=== PATIENT | female | born 1960 | race Caucasian/White ===

== ENCOUNTER 2016-06-25 17:06 | Emergency (ER) | payer MEDICARE, MEDICAID ==
[~2016-06-25] VITALS: Ht 156.2 cm; Wt 100.0 kg
[~2016-06-25 17:06] MED LIST: AMOX875T2 PO; [UNRECOGNIZED DRUG - CODE]
--- OUTSIDE RECORDS SUMMARY | 2016-06-25 17:09 | XMS REPORT ---
Author Author Debby Jaramillo Organization [employer] Address Unknown Phone Unavailable Care Team Providers Care Tech Brazer Tester Name Role Phone Debby Jaramillo CP Unavailable Allergies No Known Allergies Problems Problem Type Condition ICD-9 Code Onset Dates Condition Status Assessment [place]noy ulcerative (chronic) colitis 556.6 Active Assessment Benign neoplasm of colon 211.3 Active Problem Other complicated headache syndrome 339.44 Active Problem Vision impairment, both eyes, impairment level not further specified 369.20 Active Problem Esophageal reflux 530.81 Active Problem Chronic interstitial cystitis 595.1 Active Problem Asthma, unspecified, unspecified status 493.90 Active Problem COPD 496 Active Problem Tobacco use disorder 305.1 Active Medications No Known Medications Results No Known Results Summary Purpose eClinicalWorks Submission
--- OUTSIDE RECORDS SUMMARY | 2016-06-25 17:09 | XMS REPORT ---
Author Author Marek Do Organization [employer] Address Unknown Phone Unavailable Care Team Providers Care Rural Health Consultant Name Role Phone Marek Do CP Unavailable Allergies, Adverse Reactions, Alerts Substance Reaction Event Type Ibuprofen stomach upset Drug Allergy Darvocet-N 50 rash Drug Allergy Codeine Sulfate stomach upset Drug Allergy Claritin rash Drug Allergy Ceftin rash Drug Allergy Problems Problem Type Condition ICD-9 Code Onset Dates Condition Status Assessment Diarrhea 787.91 Active Assessment Colitis, enteritis, and gastroenteritis of presumed infectious origin 009.1 Active Assessment Abdominal pain, generalized 789.07 Active Assessment Nausea with vomiting 787.01 Active Problem Other complicated headache syndrome 339.44 Active Problem Vision impairment, both eyes, impairment level not further specified 369.20 Active Problem Esophageal reflux 530.81 Active Problem Chronic interstitial cystitis 595.1 Active Problem Asthma, unspecified, unspecified status 493.90 Active Problem COPD 496 Active Problem Tobacco use disorder 305.1 Active Medications Medication Code System Code Instructions Start Date End Date Status Dosage Mattie Wasserman [facility] [address]-22 100 MG Orally Three times a day September 04, 2014 Oct 02, 2014 1 capsule as needed Albuterol Sulfate HFA [facility] [address]-35 108 (90 Base) MCG/ACT Inhalation every 4 hrs Jan 14, 2014 2 puffs as needed Ipratropium [place] [facility] [address]-45 0.02 % Inhalation Three times a day May 01, 2014 1 vial mixed with albuterol Albuterol Sulfate [facility] [address]-84 (2.5 MG/3ML) 0.083% Inhalation Three times a day May 01, 2014 3 ml Protonix [facility] [address]-39 40 MG Orally Once a day Sep 22, 2014 1 tablet Procedures Procedure Coding System Code Date IH CMP CPT-4 87697 Sep 22, 2014 OFFICE VISIT, EST-MOD. COMPLEXITY (25 MIN) CPT-4 43603 Sep 22, 2014 Vital Signs Date/Time: Sep 22, 2014 Height 61.5 in Weight 257.4 lbs Temperature 98.1 F Blood Pressure Diastolic 86 mm Hg Blood Pressure Systolic 122 mm Hg Cardiac Monitoring Heart Rate 73 /min BMI 47.84 Index Oximetry 97 % Respiratory Rate 16 /min Results No Known Results Summary Purpose eClinicalWorks Submission
--- OUTSIDE RECORDS SUMMARY | 2016-06-25 17:09 | XMS REPORT ---
Author Author Debby Jaramillo [facility] eClinicalWorks Address Unknown Phone Unavailable Care Team Providers Care Bee Tender Name Role Phone Debby Jaramillo CP Unavailable Allergies No Known Allergies Problems Problem Type Condition Code Onset Dates Condition Status Problem Interstitial cystitis (chronic) without hematuria N30.10 Active Problem Nicotine dependence, unspecified, uncomplicated F17.200 Active Problem Unspecified asthma, uncomplicated J45.909 Active Problem Low vision, both eyes H54.2 Active Problem Gastro-esophageal reflux disease without esophagitis K21.9 Active Problem Chronic obstructive pulmonary disease, unspecified J44.9 Active Problem Other complicated headache syndrome G44.59 Active Medications No Known Medications Results No Known Results Summary Purpose eClinicalWorks Submission
--- OUTSIDE RECORDS SUMMARY | 2016-06-25 17:09 | XMS REPORT ---
Author Ace Bull [facility] eClinicalWorks Address Unknown Phone Unavailable Care Team Providers Care Lead Printer Name Role Phone Ace Carlos CP Unavailable Allergies No Known Allergies Problems No Known Problems Medications No Known Medications Results No Known Results Summary Purpose eClinicalWorks Submission
--- OUTSIDE RECORDS SUMMARY | 2016-06-25 17:09 | XMS REPORT ---
Author Author Marek Do Organization [employer] Address Unknown Phone Unavailable Care Team Providers Care Cia Agent Name Role Phone Marek Do CP Unavailable Allergies No Known Allergies Problems Problem Type Condition ICD-9 Code Onset Dates Condition Status Assessment Colitis, enteritis, and gastroenteritis of presumed infectious origin 009.1 Active Problem Other complicated headache syndrome 339.44 Active Problem Vision impairment, both eyes, impairment level not further specified 369.20 Active Problem Esophageal reflux 530.81 Active Problem Chronic interstitial cystitis 595.1 Active Problem Asthma, unspecified, unspecified status 493.90 Active Problem COPD 496 Active Problem Tobacco use disorder 305.1 Active Medications Medication Code System Code Instructions Start Date End Date Status Dosage Ipratropium [place] [facility] [address]-00 0.02 % Inhalation Three times a day May 01, 2014 1 vial mixed with albuterol Tessalon Perles [facility] [address]-97 100 MG Orally Three times a day September 04, 2014 Oct 02, 2014 1 capsule as needed Albuterol Sulfate HFA [facility] [address]-94 108 (90 Base) MCG/ACT Inhalation every 4 hrs Jan 14, 2014 2 puffs as needed Protonix [facility] [address]-86 40 MG Orally Once a day Sep 22, 2014 1 tablet Albuterol Sulfate [facility] [address]-15 (2.5 MG/3ML) 0.083% Inhalation Three times a day May 01, 2014 3 ml Procedures Procedure Coding System Code Date COMPLETE CBC W/AUTO DIFF WBC CPT-4 15778 Sep 22, 2014 Results No Known Results Summary Purpose eClinicalWorks Submission
--- OUTSIDE RECORDS SUMMARY | 2016-06-25 17:09 | XMS REPORT ---
Author Aris Torres Organization [employer] Address Unknown Phone Unavailable Care Team Providers Care Vacuum Frame Operator Name Role Phone Aris Jaramillo CP Unavailable Allergies, Adverse Reactions, Alerts Substance Reaction Event Type Darvocet A500 Info Not Available Drug Allergy Codeine Phosphate Soluble nausea and vomiting Drug Allergy Claritin rash Drug Allergy Ceftin rash Drug Allergy Problems Problem Type Condition Code Onset Dates Condition Status Assessment Dyspepsia 536.8 Active Assessment Early satiety 780.94 Active Assessment Abdominal pain 789.00 Active Assessment Colitis 558.9 Active Assessment Diarrhea 787.91 Active Medications Medication Code System Code Instructions Start Date End Date Status Dosage Albuterol NDC 0 as needed not defined Nebulizer NDC 70677-62835 1 inhalation prn as directed Procedures Procedure Coding System Code Date Office Visit, New Pt., Level 4 CPT-4 58768 Oct 23, 2014 Vital Signs Date/Time: Oct 23, 2014 Blood Pressure Systolic 118 mm Hg Weight 253.2 lbs Height 61.5 in BMI 47.06 Index Respiratory Rate 18 /min Cardiac Monitoring Heart Rate 78 /min Blood Pressure Diastolic 74 mm Hg Results No Known Results Summary Purpose eClinicalWorks Submission
--- OUTSIDE RECORDS SUMMARY | 2016-06-25 17:09 | XMS REPORT ---
Author Author Marek Do Organization [employer] Address Unknown Phone Unavailable Care Team Providers Care Pocket Grinder Operator Name Role Phone Marek Do CP Unavailable Allergies No Known Allergies Problems Problem Type Condition ICD-9 Code Onset Dates Condition Status Assessment Acute bronchitis 466.0 Active Problem Other complicated headache syndrome 339.44 Active Problem Vision impairment, both eyes, impairment level not further specified 369.20 Active Problem Esophageal reflux 530.81 Active Problem Chronic interstitial cystitis 595.1 Active Problem Asthma, unspecified, unspecified status 493.90 Active Problem COPD 496 Active Problem Tobacco use disorder 305.1 Active Medications Medication Code System Code Instructions Start Date End Date Status Dosage Ipratropium [place] [facility] [address]-94 0.02 % Inhalation Three times a day May 01, 2014 1 vial mixed with albuterol Albuterol Sulfate [facility] [address]-25 (2.5 MG/3ML) 0.083% Inhalation Three times a day May 01, [address] [facility] [address]-08 875 MG Orally Twice a day September 04, 2014 September 14, 2014 1 tablet Albuterol Sulfate HFA [facility] [address]-06 108 (90 Base) MCG/ACT Inhalation every 4 hrs Jan 14, 2014 2 puffs as needed Mattie Wasserman [facility] [address]-96 100 MG Orally Three times a day September 04, 2014 Oct 02, 2014 1 capsule as needed Procedures Procedure Coding System Code Date SED RATE CPT-4 95850 September 04, 2014 COMPLETE CBC W/AUTO DIFF WBC CPT-4 62456 September 04, 2014 Results No Known Results Summary Purpose eClinicalWorks Submission
--- OUTSIDE RECORDS SUMMARY | 2016-06-25 17:10 | XMS REPORT ---
Author Author Debby Jaramillo [facility] eClinicalWorks Address Unknown Phone Unavailable Care Team Providers Care Armor Officer Name Role Phone Debby Jaramillo CP Unavailable [...]
--- OUTSIDE RECORDS SUMMARY | 2016-06-25 17:10 | XMS REPORT ---
Author Author Marek Do Organization [employer] Address Unknown Phone Unavailable Care Team Providers Care Staff Command And Control Officer Name Role Phone Marek Do CP Unavailable Allergies, Adverse Reactions, Alerts Substance Reaction Event Type Ibuprofen stomach upset Drug Allergy Darvocet-N 50 rash Drug Allergy Codeine Sulfate stomach upset Drug Allergy Claritin rash Drug Allergy Ceftin rash Drug Allergy Problems Problem Type Condition ICD-9 Code Onset Dates Condition Status Assessment Diarrhea 787.91 Active Assessment Dehydration 276.51 Active Problem Other complicated headache syndrome 339.44 Active Problem Vision impairment, both eyes, impairment level not further specified 369.20 Active Problem Esophageal reflux 530.81 Active Problem Chronic interstitial cystitis 595.1 Active Problem Asthma, unspecified, unspecified status 493.90 Active Problem COPD 496 Active Problem Tobacco use disorder 305.1 Active Medications Medication Code System Code Instructions Start Date End Date Status Dosage Albuterol Sulfate [facility] [address]-96 (2.5 MG/3ML) 0.083% Inhalation Three times a day May 01, 2014 3 ml Tessalon Perles [facility] [address]-98 100 MG Orally Three times a day September 04, 2014 Oct 02, 2014 1 capsule as needed Ipratropium [place] [facility] [address]-22 0.02 % Inhalation Three times a day May 01, 2014 1 vial mixed with albuterol Amoxicillin [facility] [address]-75 875 MG Orally Twice a day September 04, 2014 September 14, 2014 1 tablet Albuterol Sulfate HFA [facility] [address]-21 108 (90 Base) MCG/ACT Inhalation every 4 hrs Jan 14, 2014 2 puffs as needed Vital Signs Date/Time: September 10, 2014 Height 61.5 in Weight 256.12 lbs Temperature 98.0 F Blood Pressure Diastolic 88 mm Hg Blood Pressure Systolic 124 mm Hg Cardiac Monitoring Heart Rate 66 /min BMI 47.60 Index Oximetry 98 % Respiratory Rate 16 /min Results No Known Results Summary Purpose eClinicalWorks Submission
--- OUTSIDE RECORDS SUMMARY | 2016-06-25 17:10 | XMS REPORT ---
Author Author Debby Jaramillo [facility] eClinicalWorks Address Unknown Phone Unavailable Care Team Providers Care Manager Global Name Role Phone Debby Jaramillo CP Unavailable Allergies No Known Allergies Problems Problem Type Condition ICD-9 Code Onset Dates Condition Status Problem Other complicated headache syndrome 339.44 Active [...]
--- OUTSIDE RECORDS SUMMARY | 2016-06-25 17:10 | XMS REPORT ---
Author Author Debby Jaramillo [facility] eClinicalWorks Address Unknown Phone Unavailable Care Team Providers Care Air And Water Tester Name Role Phone Debby Jaramillo CP Unavailable Allergies, Adverse Reactions, Alerts Substance Reaction Event Type Ibuprofen stomach upset Drug Allergy Darvocet-N 50 rash Drug Allergy Codeine Sulfate stomach upset Drug Allergy Claritin rash Drug Allergy Ceftin rash Drug Allergy Problems Problem Type Condition Code Onset Dates Condition Status Assessment Allergic contact dermatitis due to cosmetics L23.2 Active Problem Interstitial cystitis (chronic) without hematuria N30.10 Active Problem Nicotine dependence, unspecified, uncomplicated F17.200 Active Problem Unspecified asthma, uncomplicated J45.909 Active Problem Low vision, both eyes H54.2 Active Problem Gastro-esophageal reflux disease without esophagitis K21.9 Active Problem Chronic obstructive pulmonary disease, unspecified J44.9 Active Problem Other complicated headache syndrome G44.59 Active Medications Medication Code System Code Instructions Start Date End Date Status Dosage Protonix [facility] [address]-21 40 MG Orally Once a day Sep 22, 2014 1 tablet Albuterol Sulfate [facility] [address]-84 (2.5 MG/3ML) 0.083% Inhalation Three times a day May 01, 2014 3 ml Triamcinolone Acetonide [facility] [address]-21 0.1 % Externally Twice a day for 7 days then as needed Nov 09, 2015 1 application to affected area Ipratropium [place] [facility] [address]-77 0.02 % Inhalation Three times a day May 01, 2014 1 vial mixed with albuterol Albuterol Sulfate HFA [facility] [address]-96 108 (90 Base) MCG/ACT Inhalation every 4 hrs Jan 14, 2014 2 puffs as needed PredniSONE [facility] [address]-07 20 MG Orally Once a day Nov 09, 2015Oct 2 tablets with food or milk Procedures Procedure Coding System Code Date OFFICE VISIT, EST-LOW COMPLEXITY (15 MIN.) CPT-4 49978 Nov 09, 2015 Vital Signs Date/Time: Nov 09, 2015 Temperature 98.4 F Height 61.5 in Weight 225.75 lbs Blood Pressure Diastolic 80 mm Hg Blood Pressure Systolic 130 mm Hg Cardiac Monitoring Heart Rate 84 /min BMI 41.96 Index Oximetry 98 % Respiratory Rate 16 /min Results No Known Results Summary Purpose eClinicalWorks Submission
--- OUTSIDE RECORDS SUMMARY | 2016-06-25 17:10 | XMS REPORT | Referral Summary ---
Author Organization Unknown Address Unknown Phone Unavailable Care Team Providers Care Drop Board Worker Name Role Phone Debby Jaramillo Primary Care Physician [phone] Encounter VC Date(s): 04/01/14 - 04/01/14 [address] [facility] [place], Urology [address] [place] [address] JIMMY [place] [address] Discharge Diagnosis: Chronic trigonitis Discharge Disposition: Home or Self Care Attending Physician: Tushar Lyn JR, MD Admitting Physician: Tushar Lyn JR, MD Referring Physician: Debby Jaramillo FITTER MECHANIC Vital Signs Most recent to 1 oldest [Reference Range]: Peripheral Pulse 68 bpm Rate [60-100 bpm] (04/01/14 3:56 PM) Blood Pressure 112/78 mmHg [90-140/60-90 mmHg] (04/01/14 3:56 PM) Most recent to 1 oldest [Reference Range]: SpO2 96 % (04/01/14 3:56 PM) Problem List Condition Effective Dates Status Health Status Informant Morbid Active patient obesity(Confirmed) Allergies, Adverse Reactions, Alerts Substance Reaction Severity Status Ceftin Active Claritin Active codeine Active Darvocet A500 Active ibuprofen Active Medications albuterol CFC free 90 mcg/inh inhalation aerosol puffs, Inhalation, QID, 0 Refill(s) Start Date: 01/30/14 Status: Ordered naproxen Oral, 0 Refill(s) Start Date: 01/30/14 Status: Ordered Results No data available for this section Immunizations No data available for this section Procedures Procedure Date Related Diagnosis Body Site Cystoscopy Dilation of urethra Social History Social History Type Response Smoking Status Current some day smoker Assessment and Plan Extracted from: Title: Ambulatory Patient Education Author: Tushar Lyn JR, MD Date : 04/01/14 Follow Up With: Where: When: Debby Jaramillo [address] [place] [address] Business (1) Within 3 to 5 days Comments: Follow Up With: Where: When: Tushar Lyn [address] [place] [address] Drive; Via [facility] JIMMY [place] [phone] Business (1) In 6 months 09/29/2014 Comments:
--- OUTSIDE RECORDS SUMMARY | 2016-06-25 17:10 | XMS REPORT ---
Author Author Marek Do Organization eClinicalWorks Address Unknown Phone Unavailable Care Team Providers Care Housing Relocation Name Role Phone Marek Do CP Unavailable Allergies No Known Allergies Problems Problem Type Condition ICD-9 Code Onset Dates Condition Status Assessment Diarrhea 787.91 Active Problem Other complicated headache syndrome 339.44 [...]
--- OUTSIDE RECORDS SUMMARY | 2016-06-25 17:10 | XMS REPORT | Continuity of Care Document ---
Author Author [facility] Organization [facility] Address Unknown Phone Unavailable Support Name Relationship Address Phone RICHARDMAYITO ARREDONDO Willow COLEMAN Caregiver [address] [place] [address] DOMENICO BOJORQUEZ MD Caregiver [address] [place] [address] [place] [address] [phone] JAIME ALONSO Next Of Kin [address] [place] [address] Insurance Providers Payer Name Policy Number Subscriber Name Relationship Alison [employer] [id number] Lelo Doll 18 Self Advance Directives Directive Response Recorded Date/Time Dr Mckenzie Resuscitation Status Full Code, unverified 02/14/14 10:16am Resuscitation Documents on File No 02/11/14 3:57pm Problems Medical Problems Problem Onset Date Status FX RT 5TH METATARSAL Unknown Active Corneal abrasion Unknown Active Medications Medication Dose Route Sig Days/Qty Instructions Order Date Discontinued Date Status Albuterol 17 Gm IH NEEDED 12/13/07 Active Naproxen 1 Tab PO DAILY 02/11/14 Active Social History Social History Problem Response Recorded Date/Time Chewing Tobacco Status No 02/11/2014 3:53pm Hx Substance Use No 02/11/2014 3:53pm Hx Alcohol Use No 02/11/2014 3:53pm Has the pt used tobacco in the last 12 months Yes 02/17/2014 9:15am Tobacco Usage smoke 01/14/2014 11:55pm Query Response Start Date Stop Date Smoking Status Current every day smoker Hospital Discharge Instructions No hospital discharge instructions. Plan of Care No plan of care. Functional Status Query Response Date Recorded Physical Hygiene Self January 14, 2014 10:45pm Physical Hygiene Self January 14, 2014 10:45pm Allergies, Adverse Reactions, Alerts Allergen Type Severity Reaction Status Last Updated meperidine HCl Adverse Reaction Unknown NAUSEA Active 03/24/13 Morphine Adverse Reaction Unknown NAUSEA Active 03/24/13 Codeine Adverse Reaction Intermediate NAUSEA Active 03/24/13 Propoxyphene Allergy Severe NAUSEA AND RASH Active 01/14/14 Acetaminophen Allergy Severe NAUSEA AND RASH Active 01/14/14 Ibuprofen Adverse Reaction Intermediate PER DR. BOJORQUEZ REQUEST Active 04/05 Cefuroxime Allergy Severe RASH Active 01/14/14 Loratadine Allergy Severe RASH Active 01/14/14 Immunizations Name Given Type Hx Influenza Vaccination No Historical Hx Pneumococcal Vaccination No Historical Hx Tetanus, Diptheria, Pertussis N/A SKIN INTACT Historical Hx Influenza Vaccination No Historical Hx Tetanus, Diptheria, Pertussis N/A SKIN INTACT Historical Vital Signs Acute Vital Signs Vital Response Date/Time Temperature (Fahrenheit) 97.2 deg F (96.8 - 99.1) Temperature (Calculated Celsius) 36.04182 degrees C (36.0 - 37.3) Temperature Source Temporal Pulse Rate (adult) 64 bpm (60 - 100) Respiratory Rate 16 breaths/min (10 - 20) O2 Sat by Pulse Oximetry 98 % (90 - 100) Oxygen Delivery Method Room Air Blood Pressure 124/62 mm Hg Blood Pressure Source Automatic Cuff Height 5 ft 0 in Weight 253 lb Body Mass Index 49.0 kg/m^2 Results Test Source Date Result Interp. Ref. Range Comments Urine Bacteria October 03, 2010 8:49pm 2+ H - Has specimen been collected/obtained? Y Urine Bilirubin October 03, 2010 8:49pm Negative - Has specimen been collected/obtained? Y Urine Blood October 03, 2010 8:49pm 3+ H - Has specimen been collected/ obtained? Y Urine Collection Type October 03, 2010 8:49pm Voided - Has specimen been collected/obtained? Y Urine Color October 03, 2010 8:49pm Yellow - Has specimen been collected/obtained? Y Urine Culture Indicated October 03, 2010 8:49pm Cult not set up - Has specimen been collected/obtained? Y Urine Glucose (UA) October 03, 2010 8:49pm Negative - Has specimen been collected/obtained? Y Urine Ketones October 03, 2010 8:49pm Negative - Has specimen been collected/obtained? Y Urine Leukocyte Esterase October 03, 2010 8:49pm 1+ H - Has specimen been collected/obtained? Y Urine Nitrite October 03, 2010 8:49pm Positive H - Has specimen been collected/obtained? Y Urine Protein October 03, 2010 8:49pm Negative - Has specimen been collected/obtained? Y Urine RBC October 03, 2010 8:49pm 1-3 /HPF - Has specimen been collected/obtained? Y Urine Specific [place] October 03, 2010 8:49pm 1.030 H - Has specimen been collected/obtained? Y Urine Squamous Epithelial Cells October 03, 2010 8:49pm Many - Has specimen been collected/obtained? Y Urine Turbidity October 03, 2010 8:49pm Slt cldy - Has specimen been collected/obtained? Y Urine Urobilinogen October 03, 2010 8:49pm Normal EU/DL - Has specimen been collected/obtained? Y Urine WBC October 03, 2010 8:49pm 3-5 /HPF - Has specimen been collected/obtained? Y Urine pH October 03, 2010 8:49pm 5.0 - Has specimen been collected/ obtained? Y Urine Culture Urine, Clean Catch Voided October 03, 2010 8:45pm Kleb Pneumoniae Ssp Pneumoniae Procedures Procedure Status Date Provider(s) EMERGENCY DEPT VISIT completed 01/14/14 Encounters Encounter Location Date/Time Departed Emergency Room [facility] 01/14/14 9:37pm
--- OUTSIDE RECORDS SUMMARY | 2016-06-25 17:10 | XMS REPORT ---
Author Author Debby Jaramillo [facility] eClinicalWorks Address Unknown Phone Unavailable Care Team Providers Care Lead Laying And Gluing Machine Operator Name Role Phone Debby Jaramillo CP Unavailable [...]
--- OUTSIDE RECORDS SUMMARY | 2016-06-25 17:10 | XMS REPORT ---
Author Author Debby Jaramillo [facility] eClinicalWorks Address Unknown Phone Unavailable Care Team Providers Care Manager Track Name Role Phone Debby Jaramillo Unavailable Allergies, Adverse Reactions, Alerts Substance Reaction Event Type Ibuprofen stomach upset Drug Allergy Darvocet-N 50 rash Drug Allergy Codeine Sulfate stomach upset Drug Allergy Claritin rash Drug Allergy Ceftin rash Drug Allergy Problems Problem Type Condition Code Onset Dates Condition Status Problem Tobacco use disorder 305.1 Active Problem Chronic interstitial cystitis 595.1 Active Problem COPD 496 Active Problem Asthma, unspecified, unspecified status 493.90 Active Assessment COPD 496 Active Medications Medication Code System Code Instructions Start Date End Date Status Dosage Spiriva HandiHaler [facility] [address]-64 18 MCG Inhalation Once a day AprilNov 03, 2014 1 capsule PredniSONE [facility] [address]-13 20 MG Orally Once a day May 01, 2014 May 06, 2014 3 tablets with food or milk Albuterol Sulfate HFA [facility] [address]-56 108 (90 Base) MCG/ACT Inhalation every 4 hrs Jan 14, 2014 2 puffs as needed Albuterol Sulfate [facility] [address]-54 (2.5 MG/3ML) 0.083% Inhalation Three times a day May 01, 2014 3 ml Ipratropium [place] [facility] [address]-18 0.02 % Inhalation Three times a day May 01, 2014 1 vial mixed with albuterol Mucinex Fast-Max DM Max [facility] [address]-11 20-400 MG/20ML Orally every 4 hrs 5 ml as needed Procedures Procedure Coding System Code Date OFFICE VISIT, EST-LOW COMPLEXITY (15 MIN.) CPT-4 21602 May 07, 2014 Vital Signs Date/Time: May 07, 2014 Height 61.5 in Weight 263.4 lbs Temperature 98.3 F Blood Pressure Diastolic 80 mm Hg Blood Pressure Systolic 122 mm Hg Cardiac Monitoring Heart Rate 60 /min BMI 48.96 Index Oximetry 97 % Respiratory Rate 18 /min Results No Known Results Summary Purpose eClinicalWorks Submission
--- OUTSIDE RECORDS SUMMARY | 2016-06-25 17:10 | XMS REPORT ---
Author Author Debby Jaramillo [facility] eClinicalWorks Address Unknown Phone Unavailable Care Team Providers Care Child Adolescent Psychiatrist Name Role Phone Debby Jaramillo Unavailable Allergies No Known Allergies Problems Problem Type Condition ICD-9 Code Onset Dates Condition Status Problem Chronic interstitial cystitis 595.1 Active Problem Asthma, unspecified, unspecified status 493.90 Active Problem Tobacco use disorder 305.1 Active Assessment Asthma, acute exacerbation 493.92 Active Medications Medication Code System Code Instructions Start Date End Date Status Dosage Albuterol Sulfate [facility] [address]-22 108 (90 Base) MCG/ACT Inhalation every 4 hrs Jan 14, 2014 2 puffs as needed Results No Known Results Summary Purpose eClinicalWorks Submission
--- OUTSIDE RECORDS SUMMARY | 2016-06-25 17:10 | XMS REPORT ---
Author Debby Ojeda [facility] eClinicalWorks Address Unknown Phone Unavailable Care Team Providers Care Marine Surveyor Name Role Phone Debby Jaramillo Unavailable Allergies, Adverse Reactions, Alerts Substance Reaction Event Type Ibuprofen stomach upset Drug Allergy Darvocet-N 50 rash Drug Allergy Codeine Sulfate stomach upset Drug Allergy Claritin rash Drug Allergy Ceftin rash Drug Allergy Problems Problem Type Condition ICD-9 Code Onset Dates Condition Status Assessment Acute upper respiratory infections of unspecified site 465.9 Active Problem Other complicated headache syndrome 339.44 Active Problem Vision impairment, both eyes, impairment level not further specified 369.20 Active Problem Esophageal reflux 530.81 Active Problem Chronic interstitial cystitis 595.1 Active Problem Asthma, unspecified, unspecified status 493.90 Active Problem COPD 496 Active Problem Tobacco use disorder 305.1 Active Medications Medication Code System Code Instructions Start Date End Date Status Dosage Spiriva HandiHaler [facility] [address]-74 18 MCG Inhalation Once a day AprilNov 03, 2014 1 capsule Ipratropium [place] [facility] [address]-67 0.02 % Inhalation Three times a day May 01, 2014 1 vial mixed with albuterol Albuterol Sulfate [facility] [address]-42 (2.5 MG/3ML) 0.083% Inhalation Three times a day May 01, 2014 3 ml Tussionex Pennkinetic ER [facility] [address]-89 10-8 MG/5ML Orally at HS AugustSeptember 03, 2014 5 ml as needed Albuterol Sulfate HFA [facility] [address]-30 108 (90 Base) MCG/ACT Inhalation every 4 hrs Jan 14, 2014 2 puffs as needed Procedures Procedure Coding System Code Date OFFICE VISIT, EST-LOW COMPLEXITY (15 MIN.) CPT-4 45626 August 27, 2014 Vital Signs Date/Time: August 27, 2014 Height 61.5 in Weight 256.12 lbs Temperature 98.0 F Blood Pressure Diastolic 70 mm Hg Blood Pressure Systolic 98 mm Hg Cardiac Monitoring Heart Rate 64 /min BMI 47.60 Index Respiratory Rate 18 /min Results No Known Results Summary Purpose eClinicalWorks Submission
--- OUTSIDE RECORDS SUMMARY | 2016-06-25 17:10 | XMS REPORT ---
Author Author Marek Do Organization eClinicalWorks Address Unknown Phone Unavailable Care Team Providers Care Motors And Controls Tester Name Role Phone Marek Do CP Unavailable [...] Problem Tobacco use disorder 305.1 Active Assessment Tobacco use disorder 305.1 Active Assessment Cough 786.2 Active Assessment Acute bronchitis 466.0 Active Medications Medication Code System Code Instructions Start Date End Date Status Dosage Mattie Wasserman [facility] [address]-80 100 MG Orally Three times a day as needed for cough and congestion. April 22, 2014 May 20, 2014 1 capsule as needed Albuterol Sulfate HFA [facility] [address]-65 108 (90 Base) MCG/ACT Inhalation every 4 hrs Jan 14, 2014 2 puffs as needed Procedures Procedure Coding System Code Date OFFICE VISIT, EST-MOD. COMPLEXITY (25 MIN) CPT-4 88980 April 22, 2014 RAPID INFLUENZA, IN HOUSE CPT-4 67456 April 22, 2014 Vital Signs Date/Time: April 22, 2014 Height 61.5 in Weight 259 lbs Temperature 97.7 F Blood Pressure Diastolic 68 mm Hg Blood Pressure Systolic 100 mm Hg Cardiac Monitoring Heart Rate 75 /min BMI 48.14 Index Oximetry 95 % Respiratory Rate 18 /min Results No Known Results Summary Purpose eClinicalWorks Submission
--- OUTSIDE RECORDS SUMMARY | 2016-06-25 17:10 | XMS REPORT | Continuity of Care Document ---
Author Author [facility] Organization [facility] Address Unknown Phone Unavailable Support Name Relationship Address Phone RICHARDUMA ARREDONDOJENNY Daugherty APRN Caregiver [address] [place] [phone] ZOE CAMPOS MD Caregiver [address] [place] [address] [place] [phone] JAIME ALONSO Next Of Kin [address] [place], [place] [id number] Insurance Providers Payer Name Policy Number Subscriber Name Relationship Alison [employer] [id number] Elizabeth Doll 18 Self Problems Medical Problems Problem Onset Date Status FX RT 5TH METATARSAL Unknown Active Corneal abrasion Unknown Active Medications Medication Dose Route Sig Days/Qty Instructions Order Date Discontinued Date Status Albuterol 17 Gm IH NEEDED 12/13/07 Active Hydrocodone/Acetaminophen 1 Tab PO EVERY 4-6 HOURS PRN PAIN 15 Qty Active Social History Social History Problem Response Recorded Date/Time Smoking Status Current every day smoker 01/14/2014 10:45pm Chewing Tobacco Status No 01/14/2014 10:45pm Hx Substance Use No 01/14/2014 10:45pm Hx Alcohol Use No 01/14/2014 10:45pm Query Response Start Date Stop Date Smoking Status Current every day smoker Hospital Discharge Instructions No hospital discharge instructions. Plan of Care No plan of care. Functional Status Query Response Date Recorded Physical Hygiene Self January 14, 2014 10:45pm Disabilities None January 14, 2014 10:45pm Devices Used Glasses January 14, 2014 10:45pm Dressing Self January 14, 2014 10:45pm Ambulation Self January 14, 2014 10:45pm Diet Self January 14, 2014 10:45pm Mental Status Alert January 14, 2014 11:47pm Disabilities None January 14, 2014 10:45pm Devices Used Glasses January 14, 2014 10:45pm Physical Hygiene Self January 14, 2014 10:45pm Dressing Self January 14, 2014 10:45pm Ambulation Self January 14, 2014 10:45pm Diet Self January 14, 2014 10:45pm Allergies, Adverse [...] Active 01/14/14 Immunizations Name Given Type Hx Tetanus, Diptheria, Pertussis N/A SKIN INTACT Historical Hx Tetanus, Diptheria, Pertussis N/A SKIN INTACT Historical Vital Signs Acute Vital Signs Vital Response Date/Time Temperature (Fahrenheit) 97.1 deg F (96.8 - 99.1) Temperature (Calculated Celsius) 36.37024 degrees C (36.0 - 37.3) Pulse Rate (adult) 83 bpm (60 - 100) Respiratory Rate 22 breaths/min (10 - 20) O2 Sat by Pulse Oximetry 99 % (90 - 100) Blood Pressure 153/93 mm Hg Height 5 ft 2 in Weight 250 lb Body Mass Index 45.0 kg/m^2 Results Test Source Date Result Interp. [...] Has specimen been collected/obtained? Y Urine Specific [place] October 03, 2010 8:49pm 1.030 H - [...] 2010 8:45pm Kleb Pneumoniae Ssp Pneumoniae Procedures No known history of procedures. Encounters Encounter Location Date/Time Departed Emergency Room [facility] 01/14/14 9:37pm Recent Diagnosis
--- OUTSIDE RECORDS SUMMARY | 2016-06-25 17:10 | XMS REPORT | Referral Summary ---
Author Author [facility] Organization [facility] Address Unknown Phone Unavailable Care Team Providers Care Community Service Aide Name Role Phone Luis Fernando Do Primary Care Physician [phone] Encounter VC Date(s): 11/04/14 - 11/04/14 [facility] [address] [place] [address] Final: ESOPHAGITIS, UNSPECIFIED Final: DIAPHRAGMATIC HERNIA WITHOUT MENTION OF OBSTRUCTION OR GANGRENE Final: Migraine, unspecified, without mention of intractable migraine, without mention of status migrainosus Final: TOBACCO USE DISORDER Discharge Disposition: 01-Home or Self Care Attending Physician: Shadi Noe JR, MD Vital Signs Most recent to 1 oldest [Reference Range]: Apical Heart Rate 54 bpm [60-100 bpm] *LOW* (11/04/14 2:59 PM) Heart Rate Monitored 53 bpm [60-100 bpm] *LOW* (11/04/14 4:45 PM) Respiratory Rate 14 br/min [14-20 br/min] (11/04/14 4:45 PM) Blood Pressure 113/77 mmHg [90-140/60-90 mmHg] (11/04/14 4:45 PM) Mean Arterial 93 mmHg Pressure, Cuff (11/04/14 4:45 PM) SpO2 98 % (11/04/14 4:45 PM) Problem List Condition Effective Dates Status Health Status Informant Asthma(Confirmed) Active Cystitis, Active interstitial(Confirm ed) Diverticulitis(Confi Active rmed) Morbid Active patient obesity(Confirmed) Tobacco Active patient user(Confirmed) TIA (transient Active ischemic attack)(Confirmed) Allergies, Adverse Reactions, Alerts Substance Reaction Severity Status Ceftin Active Claritin Active codeine Active Darvocet A500 Active Demerol HCl Active ibuprofen Active morphine Active Medications albuterol CFC free 90 mcg/inh inhalation aerosol puffs, Inhalation, QID, 0 Refill(s) Start Date: 01/30/14 Status: Ordered NEBULIZER NEBULIZER, 0 Refill(s) Start Date: 11/04/14 Status: Ordered Neurontin 300 mg oral capsule 300 mg 1 caps, Oral, Bedtime (once a day), # 30 caps, 0 Refill(s), Pharmacy: [facility] #[id number], 1 caps Oral Bedtime (once a day) Start Date: 09/16/14 Status: Ordered Results No data available for this section Immunizations Vaccine Date Refusal Reason tetanus-diphth toxoids (Td) adult/adol 04/18/02 Procedures Procedure Date Related Diagnosis Body Site Esophagogastroduodenoscopy - SN1 11/04/14 Examination Under Anesthesia2 11/04/14 Colonoscopy 09/11/14 Cholecystectomy 2005 Appendectomy 1975 CTR - Carpal tunnel release1975 Cystoscopy Dilation of urethra Hysterectomy 1auto-populated from documented surgical case 2auto-populated from documented surgical case 3Left Social History Social History Type Response Smoking Status Current every day smoker; Type: Cigarettes; Tobacco use per day: Less than Pack Assessment and Plan No data available for this section
--- OUTSIDE RECORDS SUMMARY | 2016-06-25 17:10 | XMS REPORT ---
Author Author Ale Romero Organization eClinicalWorks Address Unknown Phone Unavailable Care Team Providers Care Lawn Mower Sharpener Name Role Phone Ale Romero CP Unavailable Allergies, Adverse Reactions, Alerts Substance Reaction Event Type Ibuprofen stomach upset Drug Allergy Darvocet-N 50 rash Drug Allergy Codeine Sulfate stomach upset Drug Allergy Claritin rash Drug Allergy Ceftin rash Drug Allergy Problems Problem Type Condition ICD-9 Code Onset Dates Condition Status Problem Asthma, unspecified, unspecified status 493.90 Active Assessment Hematuria, unspecified 599.70 Active Problem Chronic interstitial cystitis 595.1 Active Assessment Asthma, acute exacerbation 493.92 Active Assessment Chronic interstitial cystitis 595.1 Active Medications Medication Code System Code Instructions Start Date End Date Status Dosage Macrobid [facility] [address]-70 100 MG Orally every 12 hrs Jan 14, 2014Jan Active 1 capsule with food Tylenol PM Extra Strength [facility] [address]-60 500-25 MG Orally Once a day Active 1 tablet at bedtime as needed Albuterol Sulfate HFA [facility] [address]-74 108 (90 Base) MCG/ACT Inhalation every 4 hrs Jan 14, 2014 Active 2 puffs as needed Naproxen [facility] [address]-49 250 MG Orally Twice a day Active 1 tablet Procedures Procedure Coding System Code Date OFFICE VISIT, EST-LOW COMPLEXITY (15 MIN.) CPT-4 71277 Jan 14, 2014 URINALYSIS, IN HOUSE CPT-4 79902 Jan 14, 2014 Vital Signs Date/Time: Jan 14, 2014 Height 61.5 inches Weight 255.4 lbs Temperature 98.2 F Blood Pressure Diastolic 78 mm Hg Blood Pressure Systolic 120 mm Hg Cardiac Monitoring Heart Rate 72 Beats per Minute BMI 47.47 Index Respiratory Rate 18 per Minute Results Name Result Date Reference Range Unit In House Urinalysis, automated Summary Purpose eClinicalWorks Submission
--- OUTSIDE RECORDS SUMMARY | 2016-06-25 17:10 | XMS REPORT ---
Author Author Debby Jaramillo [facility] eClinicalWorks Address Unknown Phone Unavailable Care Team Providers Care Head Of Design Name Role Phone Debby Jaramillo Unavailable Allergies, Adverse Reactions, Alerts Substance Reaction Event Type Ibuprofen stomach upset Drug Allergy Darvocet-N 50 rash Drug Allergy Codeine Sulfate stomach upset Drug Allergy Claritin rash Drug Allergy Ceftin rash Drug Allergy Problems Problem Type Condition Code Onset Dates Condition Status Assessment Personal history of transient ischemic attack [TIA], and cerebral infarction without residual deficits V12.54 Active Assessment Vision impairment, both eyes, impairment level not further specified 369.20 Active Problem Vision impairment, both eyes, impairment level not further specified 369.20 Active Problem COPD 496 Active Problem Other complicated headache syndrome 339.44 Active Problem Asthma, unspecified, unspecified status 493.90 Active Assessment Other complicated headache syndrome 339.44 Active Problem Tobacco use disorder 305.1 Active Problem Chronic interstitial cystitis 595.1 Active Medications Medication Code System Code Instructions Start Date End Date Status Dosage Albuterol Sulfate HFA [facility] [address]-76 108 (90 Base) MCG/ACT Inhalation every 4 hrs Jan 14, 2014 2 puffs as needed Albuterol Sulfate [facility] [address]-12 (2.5 MG/3ML) 0.083% Inhalation Three times a day May 01, 2014 3 ml Ipratropium [place] [facility] [address]-43 0.02 % Inhalation Three times a day May 01, 2014 1 vial mixed with albuterol Spiriva HandiHaler [facility] [address]-72 18 MCG Inhalation Once a day AprilNov 03, 2014 1 capsule Procedures Procedure Coding System Code Date OFFICE VISIT, EST-LOW COMPLEXITY (15 MIN.) CPT-4 62960 June 18, 2014 Vital Signs Date/Time: June 18, 2014 Height 61.5 in Weight 261.0 lbs Temperature 98.2 F Blood Pressure Diastolic 90 mm Hg Blood Pressure Systolic 130 mm Hg Cardiac Monitoring Heart Rate 60 /min BMI 48.51 Index Respiratory Rate 16 /min Results No Known Results Summary Purpose eClinicalWorks Submission
--- OUTSIDE RECORDS SUMMARY | 2016-06-25 17:10 | XMS REPORT | Referral Summary ---
Author Organization Unknown Address Unknown Phone Unavailable Care Team Providers Care Interviewing Clerk Name Role Phone Debby Jaramillo Primary Care Physician [phone] Encounter VC Date(s): 03/04/14 - 03/04/14 [facility] YULISSA Abdalla [place], Urology [address] [place] [address] [place] [address] Discharge Diagnosis: Chronic trigonitis Discharge Disposition: Home or Self Care Attending Physician: Tushar yLn JR, MD Admitting Physician: Tushar Lyn JR, MD Referring Physician: Debby Jaramillo REAL ESTATE MANAGER Vital Signs Most recent to 1 oldest [Reference Range]: Peripheral Pulse 72 bpm Rate [60-100 bpm] (03/04/14 1:57 PM) Blood Pressure 108/70 mmHg [90-140/60-90 mmHg] (03/04/14 1:57 PM) Problem List Condition Effective Dates Status [...] No data available for this section Procedures No data available for this section Social History Social History Type Response Smoking Status Current some day smoker Assessment and Plan Extracted from: Title: Ambulatory Patient Education Author: Tushar Lyn JR, MD Date : 03/04/14 Follow Up With: Where: [place]: [place] [address] Business (1) Within 3 to 5 days Comments: Follow Up With: Where: When: Tushar Lyn [address] [place] [address] Drive; [address] [place] [address] Business (1) In 4 weeks 04/01/2014 Comments: Extracted from: Title: Office Visit Note Author: Tushar Lyn JR, MD Date: 03/04/14 Assessment/Plan Chronic trigonitis Status post cystoscopy hydrodistention of bladder, SLT laser vaporization chronic diffuse trigonitis, and bladder biopsy which was benign. She's doing very well. Recheck again in my office in 4 weeks. 2 weeks from now if she continues to be well should be able to resume her normal activities as before the surgery was done Ordered: Office Visit Level 3 Est 20136
--- OUTSIDE RECORDS SUMMARY | 2016-06-25 17:10 | XMS REPORT ---
Author Author Gertrude Butterfield Organization eClinicalWorks Address Unknown Phone Unavailable Care Team Providers Care Hazardous Materials Waste Technician Name Role Phone Gertrude Butterfield CP Unavailable Allergies No Known Allergies Problems Problem Type Condition ICD-9 Code Onset Dates Condition Status Problem Asthma, unspecified, unspecified status 493.90 Active Problem Chronic interstitial cystitis 595.1 Active Medications Medication Code System Code Instructions Start Date End Date Status Dosage Albuterol Sulfate HFA [facility] [address]-40 108 (90 Base) MCG/ACT Inhalation every 4 hrs Jan 14, 2014 Active 2 puffs as needed Tylenol PM Extra Strength [facility] [address]-28 500-25 MG Orally Once a day Active 1 tablet at bedtime as needed Naproxen [facility] [address]-02 250 MG Orally Twice a day Active 1 tablet Macrobid [facility] [address]-07 100 MG Orally every 12 hrs Jan 14, 2014Jan Active 1 capsule with food Vital Signs Date/Time: Jan 14, 2014 Height 61.5 inches Weight 255.4 lbs Temperature 98.2 F Blood Pressure Diastolic 78 mm Hg Blood Pressure Systolic 120 mm Hg Cardiac Monitoring Heart Rate 72 Beats per Minute BMI 47.47 Index Respiratory Rate 18 per Minute Results No Known Results Summary Purpose eClinicalWorks Submission
--- OUTSIDE RECORDS SUMMARY | 2016-06-25 17:10 | XMS REPORT ---
Author Author Marek Do Organization eClinicalWorks Address Unknown Phone Unavailable Care Team Providers Care News Technical Director Name Role Phone Marek Do CP Unavailable Allergies, Adverse Reactions, Alerts Substance Reaction Event Type Ibuprofen stomach upset Drug Allergy Darvocet-N 50 rash Drug Allergy Codeine Sulfate stomach upset Drug Allergy Claritin rash Drug Allergy Ceftin rash Drug Allergy Problems Problem Type Condition ICD-9 Code Onset Dates Condition Status Assessment Esophageal reflux 530.81 Active Assessment Lumbago 724.2 Active Assessment Diarrhea 787.91 Active Problem Other complicated [...] Date End Date Status Dosage Albuterol Sulfate [facility] [address]-74 (2.5 MG/3ML) 0.083% Inhalation Three times a day May 01, 2014 3 ml Ipratropium [place] [facility] [address]-61 0.02 % Inhalation Three times a day May 01, 2014 1 vial mixed with albuterol Albuterol Sulfate HFA [facility] [address]-20 108 (90 Base) MCG/ACT Inhalation every 4 hrs Jan 14, 2014 2 puffs as needed Procedures Procedure Coding System Code Date OFFICE VISIT, EST-LOW COMPLEXITY (15 MIN.) CPT-4 86244 August 19, 2014 Vital Signs Date/Time: August 19, 2014 Height 61.5 in Weight 257.4 lbs Temperature 98.6 F Blood Pressure Diastolic 84 mm Hg Blood Pressure Systolic 126 mm Hg Cardiac Monitoring Heart Rate 72 /min BMI 47.84 Index Respiratory Rate 16 /min Results No Known Results Summary Purpose eClinicalWorks Submission
--- OUTSIDE RECORDS SUMMARY | 2016-06-25 17:10 | XMS REPORT ---
Author Author Marek Do Organization eClinicalWorks Address Unknown Phone Unavailable Care Team Providers Care Neckties Painter Name Role Phone Marek Do CP Unavailable [...]
--- OUTSIDE RECORDS SUMMARY | 2016-06-25 17:10 | XMS REPORT ---
Author Author Debby Jaramillo [facility] eClinicalWorks Address Unknown Phone Unavailable Care Team Providers Care Yarn Sizer Name Role Phone Debby Jaramillo CP Unavailable [...] cystitis 595.1 Active Problem COPD 496 Active Assessment Tobacco use disorder 305.1 Active Assessment Acute upper respiratory infections of unspecified site 465.9 Active Problem Asthma, unspecified, unspecified status 493.90 Active Assessment Asthma, unspecified, unspecified status 493.90 Active Medications Medication Code System Code Instructions Start Date End Date Status Dosage PredniSONE [facility] [address]-08 20 MG Orally Once a day May 01, 2014 May 06, 2014 3 tablets with food or milk Ipratropium [place] [facility] [address]-53 0.02 % Inhalation Three times a day May 01, 2014 1 vial mixed with albuterol Azithromycin [facility] [address]-47 250 MG Orally Once a day May 01, 2014 May 06, 2014 2 tablet on the first day, then 1 tablet daily for 4 days Albuterol Sulfate [facility] [address]-01 (2.5 MG/3ML) 0.083% Inhalation Three times a day May 01, 2014 3 ml Albuterol Sulfate HFA [facility] [address]-78 108 (90 Base) MCG/ACT Inhalation every 4 hrs Jan 14, 2014 2 puffs as needed Mucinex Fast-Max DM Max [facility] [address]-32 20-400 MG/20ML Orally every 4 hrs 5 ml as needed Procedures Procedure Coding System Code Date OFFICE VISIT, EST-LOW COMPLEXITY (15 MIN.) CPT-4 98030 May 01, 2014 INHALATION TREATMENT. CPT-4 19873 May 01, 2014 Vital Signs Date/Time: May 01, 2014 Height 61.5 in Weight 260.12 lbs Temperature 97.9 F Blood Pressure Diastolic 71 mm Hg Blood Pressure Systolic 117 mm Hg Cardiac Monitoring Heart Rate 67 /min BMI 48.35 Index Respiratory Rate 18 /min Results No Known Results Summary Purpose eClinicalWorks Submission
--- OUTSIDE RECORDS SUMMARY | 2016-06-25 17:10 | XMS REPORT | Referral Summary ---
Author Author [facility] Organization [facility] Address Unknown Phone Unavailable Care Team Providers Care Winch Driver Name Role Phone Luis Fernando Do Primary Care Physician [phone] Encounter VC Date(s): 09/16/14 - 09/16/14 [facility] [address] [place], [place] [address] [[email or web address]] Discharge Diagnosis: Lumbago Discharge Diagnosis: Lumbar radiculitis Discharge Disposition: 01-Home or Self Care Attending Physician: Junior Chance MD Admitting Physician: Junior Chance MD Referring Physician: Marek Do DO Vital Signs No data available for this section Problem List Condition Effective Dates Status Health [...] day), # 30 caps, 0 Refill(s), Pharmacy: [facility] #[id number], 1 caps Oral Bedtime (once a day) Start Date: 09/16/14 Status: Ordered Results No data available for this section Immunizations Vaccine Date Refusal Reason tetanus-diphth toxoids (Td) adult/adol 04/18/02 Procedures Procedure Date Related Diagnosis Body Site Esophagogastroduodenoscopy - SN1 11/04/14 Examination Under Anesthesia2 11/04/14 Colonoscopy 09/11/14 Cholecystectomy 2005 Appendectomy 1975 CTR - Carpal tunnel release3 1975 Cystoscopy Dilation of urethra Hysterectomy 1auto-populated from documented surgical case 2auto-populated from documented surgical case 3Left Social History Social History Type Response Smoking Status Current every day smoker; Type: Cigarettes; Tobacco use per day: Less than Pack Assessment and Plan Extracted from: Title: Office Visit Note Author: Junior Chance Date: 09/16/14 Assessment/Plan Lumbago Ordered: Office Visit Level 3 New [id number] Request for Therapies Return to Clinic Lumbar radiculitis Conservative treatment options were discussed with the patient at length. I recommended physical therapy evaluation and treatment as well as Neurontin 300 mg daily at bedtime. If she's not getting any better with these further conservative treatment options, I would recommend obtaining a lumbar spine MRI followed by evaluation and treatment by Dr. Cabrera. I think injections could provide both diagnostic and therapeutic benefit. Additionally , I think she needs to have her right foot reevaluated by foot surgeon. 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 Dorsiflexion, plantar flexion and EHL were all decreased in strength on the right, mostly because her foot is so tender from the nonunion. Ordered: Office Visit Level 3 New 14171 Request for Therapies Return to Clinic Orders: gabapentin, 300 mg 1 caps, Oral, Bedtime (once a day), # 30 caps, 0 Refill(s), Pharmacy: [facility] #[id number], 1 caps Oral Bedtime (once a day) Referrals to Other Providers Referred by: Junior Chance MD
[2016-06-25 17:15] VITALS: Ht 156.2 cm; Wt 100.0 kg
--- OUTSIDE RECORDS SUMMARY | 2016-06-25 18:38 | XMS REPORT | Continuity of Care Document ---
Author Author [facility] Organization [facility] Address Unknown Phone Unavailable Support Name Relationship Address Phone RICHARDMAYITO ARREDONDO Willow COLEMAN Caregiver [address] [place] [address] DOMENICO BOJORQUEZ MD Caregiver [address] [place] [address] [place] [address] [phone] JIAME ALONSO Next Of Kin [address] [place] [address] Insurance Providers Payer Name Policy Number Subscriber Name Relationship Alison [employer] [id number] Lelo Doll 18 Self Advance Directives Directive [...] F (96.8 - 99.1) Temperature (Calculated Celsius) 36.61635 degrees C (36.0 - 37.3) Temperature Source [...] Has specimen been collected/obtained? Y Urine Specific [place] October 03, 2010 8:49pm 1.030 H - [...] Encounters Encounter Location Date/Time Departed Emergency Room [facility] 01/14/14 9:37pm
--- OUTSIDE RECORDS SUMMARY | 2016-06-25 18:39 | XMS REPORT | Continuity of Care Document ---
Author Author [facility] Organization [facility] Address Unknown Phone Unavailable Support Name Relationship Address Phone RICHARDUMA ARREDONDOJENNY Daugherty APRN Caregiver [address] [place] [phone] ZOE CAMPOS MD Caregiver [address] [place] [address] [place] [phone] JAIME ALONSO Next Of Kin [address] [place], [place] [id number] Insurance Providers Payer Name Policy Number Subscriber Name Relationship Alison [employer] [id number] Elizabeth Doll 18 Self Problems Medical Problems [...] F (96.8 - 99.1) Temperature (Calculated Celsius) 36.68684 degrees C (36.0 - 37.3) Pulse Rate [...] Has specimen been collected/obtained? Y Urine Specific [place] October 03, 2010 8:49pm 1.030 H - [...] Encounters Encounter Location Date/Time Departed Emergency Room [facility] 01/14/14 9:37pm Recent Diagnosis
[2016-06-25] MEDS ORDERED: HYDR-347 PO (19:05)
--- NOTE | 2016-06-25 19:06 | ERPDOC ---
Departure Disposition Decision Date: June 25, 2016 Disposition Decision Time: 19:04 Disposition: 01 DISCHARGED HOME, SELF-CARE Impression Impression Impression: Primary Impression: Knee pain Laterality: left Chronicity: acute Qualified Codes: M25.562 - Pain in left knee Severity: Mild Condition: Improved Seen By: Physician only Referrals: SAMUEL HENRY MD (PCP) JANELLE MCMAHON DO (Family) 2 Days Patient Instructions: Knee Pain (ED) Problems/Meds/Labs Reviewed?: Yes Medications reviewed and manag: Yes Follow up care ordered?: Yes Mental Status: Alert, Oriented Scripts Hydrocodone/Acetaminophen ([place] 7.5-325 Tablet) 7.5-325 Tablet 1 TAB PO Q4HR Y for PAIN for 3 Days, #18 TAB 0 Refills Prov: ROSENDO SHEIKHK Amrita DOYLE 06/25/16 HPI - General Medical General Chief Complaint: Lower Extremity Injury Stated Complaint: LEFT LEG PAIN Time Seen by Provider: 18:32 Source: patient Exam Limitations: no limitations HPI - General Medical Initial Comments 56-year-old female presents the emergency department with a chief complaint of pain in her left knee. Patient has been battling sciatica type symptoms for the past 2 weeks and was walking through her home when she tripped over the door plate and twisted her left knee. She denies falling to the ground or striking the knee. Patient notes generalized discomfort around the knee. Pain is moderate. Pain is dull. There is no radiation. The patient twisted her knee earlier today. Symptoms have been persistent in nature since onset. She denies any other injuries or complaints. No other complaints or associated symptoms. She notes that the pain improves with rest and positioning and increases with ambulation. Occurred At: home Onset: Constant Allergies: Coded Allergies: acetaminophen (Verified Allergy, Severe, NAUSEA AND RASH, 01/01/15) cefuroxime (Verified Allergy, Severe, RASH, 06/25/16) loratadine (Verified Allergy, Severe, RASH, 06/25/16) propoxyphene (Verified Allergy, Severe, NAUSEA AND RASH, 06/25/16) codeine (Verified Adverse Reaction, Intermediate, NAUSEA, 06/25/16) ibuprofen (Verified Adverse Reaction, Intermediate, PER DR. BOJORQUEZ REQUEST , 06/25/16) meperidine HCl (Verified Adverse Reaction, Unknown, NAUSEA, 06/25/16) morphine (Verified Adverse Reaction, Unknown, NAUSEA, 06/25/16) Past History Past Medical History ENMT: vision problems Hx Echocardiogram: No Respiratory: COPD GI: other Female: UTI, other Neurological: TIA, migraines Infectious: other Surgical History General: appendix, colonoscopy, gallbladder Reproductive/: hysterectomy, other Joint: carpal tunnel Family History Family PMH: FOUND: CAD, CVA Vaccines Hx Influenza Vaccination: No Hx Pneumococcal Vaccination: No Social History Smoking Status: Never smoker Substance Use Type: does not use Alcohol Intake: none Review of Systems Constitutional Constitutional: DENIES: chills, fever Eyes General: DENIES: erythema, exudate Lids/Accessories: DENIES: erythema, swelling Vision: DENIES: acuity, blurring ENMT Ears: DENIES: drainage, erythema Hearing: DENIES: hearing loss Balance: DENIES: ataxia, falling to one side Sinuses: DENIES: congestion, pain Nose: DENIES: nosebleeds, pain Mouth/Throat: DENIES: painful swallowing, sore throat Teeth: DENIES: pain Jaw: DENIES: pain Cardiovascular Cardiac: DENIES: chest pain, dyspnea on exertion Rhythm/Rate: DENIES: irregular beat, palpitations Vascular: DENIES: pedal edema, unilateral swelling Pulmonary Respiratory: DENIES: cough, dyspnea, pleuritic chest pain, sputum GI Upper Abdomen: DENIES: nausea, pain, vomiting Lower Abdomen: DENIES: diarrhea, pain General: DENIES: dysuria, frequency Musculoskeletal General: joint pain, tenderness Integumentary Skin: DENIES: itching, rash Neurological General: DENIES: headache, numbness, weakness Psychiatric Psychiatric: DENIES: emotional instability, suicidal ideation/attempt Endocrine Endocrine: DENIES: polydipsia, polyphagia Hematologic/Lymphatic Hematologic/Lymphatic: DENIES: frequent nosebleeds, lymphadenopathy Allergic/Immunological Allergic/Immunoligical: DENIES: allergic reactions, hives Physical Exam General General Nourishment: well nourished, well developed, appears stated age, no acute distress, adult General Body Habitus: well groomed Vitals and Pain First Documented Vital Signs Date Time Temp Pulse Resp B/P Pulse Ox O2 Delivery O2 Flow Rate FiO2 06/25/16 17:15 98.3 75 20 112/64 96 Room Air Weight: Kilograms: 100.000 Height (feet): 5 Height (inches): 1.50 Triage Pain Scale: RN VS reviewed by Provider: Yes Normal Exams: Head: Normocephalic w/o trauma Eyes: Pupils are PERRLA w/ EOMI, No scleral icterus, irritation, or foreign bodies noted ENMT: No facial trauma, nasal exudates, pharyngeal erythema, or exudates are noted Dental: No fractured, loose, or missing teeth noted Neck: Full range of motion, without adenopathy, JVD, bruits or thyromegaly Chest/Resp: Clear all miranda, with good airflow, and symmetry bilaterally CV: Regular rate and rhythm, without murmur or gallop, Pulses 2+ all extremities, capillary refill, <2 seconds all ext., no pedal edema noted Abdomen: Bowel sounds positive, soft, non-tender, non-distended, no hepatosplenomegaly, masses or bruits noted Lymphatic: No lymphadenopathy, or lymphedema noted Musculoskeletal: No tenderness, or deformity noted, good range of motion, all extremities Integumentary: No rashes, hives, or bruising noted, hair and nails, without abnormality Neurologic: Patient is alert, and oriented, cranial nerves, motor/sensory/ cerebellar, exams w/o gross deficits, to observation Psychiatric: Patient exhibits, appropriate attention, emotion and affect Musculoskeletal (brief) Comments LLE - full range of motion. Generalized tenderness to palpation. No erythema. No edema. Pulses intact. Sensation intact. Capillary refill less than 2. Gait is normal. No focal bony tenderness. No other tenderness in the LLE. Unremarkable ligament exam. All other extremities are unremarkable. Differential Diagnoses Considering: Other (Sprain / Strain / Fracture / Internal Derangement) Progress Results/Orders Orders Procedure Category Date Status Time Knee Left 3 Views RAD 06/25/16 Taken 18:32 Knee Immobilizer KALPESH 06/25/16 In Process 18:59 Hydrocodone/Acetaminophen PHA 06/25/16 Complete ([place] 7.5/325 19:00 Crutches EDM 06/25/16 Transmitted 19:00 Medications Current ED Medications Acetaminophen/ Hydrocodone Bitart ([place] 7.5/325) 1 tab O ONCE PO Last administered on 06/25/16t 19:13; Start 06/25/16 at 19:00; Stop 06/25/16 at 19:02; Status DC Progress Progress Imaging is discussed in detail with the patient and questions are answered. I do not see any acute findings on the knee x-ray. Radiology over-read is offered to the patient and declined. Patient is given [place] 7.5 mg by mouth 1 with improvement of symptoms in the emergency Department. Patient is placed in a knee immobilizer with good alignment by the RN. Patient is provided with crutches and instructions in their use. Patient is in agreement with the current plan of management. Patient is discharged home in improved condition. Patient is to follow up as instructed. Patient is to return to the emergency Department if her condition worsens or changes in any manner. Patient is provided with a prescription for [place]. Xray Xray : Xray: Knee L Interpretation: Normal, Interpreted by TAWNYA Stafford DO June 25, 2016 19:06
[2016-06-25 19:25] VITALS: BP 119/71; PULSE 79; RESP 20; TEMP 98.3; O2SAT 95
--- NOTE | 2016-06-26 08:36 | DI ---
Indication: ITS.REASON: Twisting injury with knee pain PROCEDURE: KNEE LEFT 3 VIEWS: Encounter: Initial Comparison: None Findings: There is no acute fracture, dislocation or malalignment identified. Impression: No acute osseous abnormality. .
== END 2016-06-25 19:25 | disposition home or self-care (01) ==
LOC: ED 17:06
DX: M25.562 Pain in left knee (principal); W18.40XA Slipping, tripping and stumbling without falling, unspecified, initial encounter; Y93.01 Activity, walking, marching and hiking; Y92.009 Unspecified place in unspecified non-institutional (private) residence as the place of occurrence of the external cause; Y99.8 Other external cause status
CPT/HCPCS: 73562; 99283; A9270

== ENCOUNTER → 2016-06-30 | Outpatient (CLI) | payer MEDICARE, MEDICAID ==
[~2016-06-30] MED LIST changes: -AMOX875T2 PO
--- NOTE | 2016-07-01 08:32 | DI ---
Indication: ITS.REASON: M25.562 POSTERIOR LEFT KNEE PAIN MRI KNEE LEFT W/O CONTRAST: Comparison: Plain radiograph 06/25/2016 Technique: T1 and T2-weighted images in axial, coronal and sagittal image planes. Findings: Patient has numerous cystic structures involving the central portion of the proximal fibula extending posteriorly. There are several of them measuring between 5 mm to just under a centimeter. No such bony abnormality identified in the patella or distal femur. Moderate suprapatellar joint effusion is noted. Medial and lateral collateral ligaments are intact. Posterior corners are intact. Patient shows minimal signal within the ACL. ACL is intact. Patellofemoral joint and patellar tendon are unremarkable. No acute meniscal abnormality is appreciated. Minimal intrasubstance signal seen posteriorly on the medial side but this does not appear to be of tear. Chondral surfaces failed to show significant abnormality. Impression: 1. Cystic changes in the proximal tibia of indeterminate significance. 2. Small suprapatellar joint effusion. 3. Minimal intrasubstance signal in the anterior cruciate which is still attached. 4. Some early degenerative change in the posterior horn of the medial meniscus though no definitive tear noted 5. No additional significant findings. .
== END ==
LOC: IMA 14:58
PROVIDERS: ATTEND Registered Nurse
DX: M23.322 Other meniscus derangements, posterior horn of medial meniscus, left knee (principal); M25.462 Effusion, left knee; M89.8X6 Other specified disorders of bone, lower leg; R93.7 Abnormal findings on diagnostic imaging of other parts of musculoskeletal system; M25.562 Pain in left knee